=== PATIENT | female | born 1950 | race African-American/Black ===

== ENCOUNTER 2018-12-21 16:10 | Emergency (ER) | payer MEDICARE, OTHER ==
--- NOTE | 2018-12-21 16:20 | Event Note ---
ED Screening Note ED Screening Note: TO ER FROM SHE HAS NUMEROUS ABSCESS OF LEFT SIDE ANTERIOR ABD, BUTTOCK, LLE CHILLS/FEVER RX BP OSTEOPOROSIS This initial assessment/diagnostic orders/clinical plan/treatment(s) is/are subject to change based on patients health status, clinical progression and re- assessment by fellow clinical providers in the ED. Further treatment and workup at subsequent clinical providers discretion. Patient/guardian urged not to elope from the ED as their condition may be serious if not clinically assessed and managed. Initial orders include:
[2018-12-21] MEDS ORDERED: NACL 0.9% 1000 ML IV ONE (16:27)
[2018-12-21 16:53] LABS: Hematocrit 35.4 % (30.3-42.9); Mean Corpuscular HGB Conc 34 % (30-34); Mean Corpuscular Volume 95 fl (79-97); Platelet Count 329 K/mm3 (140-440); Red Blood Count 3.72 M/mm3 (3.65-5.03); Red Cell Distribution Width 13.7 % (13.2-15.2)
[2018-12-21] MEDS ORDERED: ceFAZolin 2 GM in NACL 0.9% 100 ML IV SCH (17:00)
[2018-12-21] MEDS ORDERED: NORCO 5/325 PO ONE (17:06)
--- NOTE | 2018-12-21 17:12 | Emergency Department Report ---
HPI - General Chief Complaint: Skin/Abscess/Foreign Body Time Seen by Provider: 12/21/18 16:50 - HPI HPI: Room 26 The patient is a 68-year-old female presenting with a chief complaint of multiple abscesses. The patient states 5 days ago she noticed masses on her belly legs and buttocks that were "hot" and draining "pus." Patient is a subjective fever. The patient with her primary physician's office today and in turn was sent to the ED for further management. Patient states the abscesses hurt worse when they're touched her pain ranges from 6-8/10. Patient denies any previous episodes of same. History obtained using language line Location: [See above] Duration: [See above] Quality: [See above] Severity: [See above] Modifying factors: [see above] Context: [see above] Mode of transportation: [not driving] ED Past Medical Hx - Past Medical History Hx Hypertension: Yes Additional medical history: OSTESO POROSIS - Surgical History Past Surgical History?: No - Family History Family history: no significant - Social History Smoking Status: Never Smoker Substance Use Type: None - Medications Home Medications: Home Medications Medication Instructions Recorded Confirmed Last Taken Type HYDROcodone/APAP 5-325 [[place] 1 each PO Q6HR PRN #14 tablet 12/21/18 Unknown Rx 5/325] Ibuprofen [Motrin 800 MG tab] 800 mg PO Q8HR PRN #20 tablet 12/21/18 Unknown Rx levoFLOXacin [Levaquin] 750 mg PO QDAY #10 tablet 12/21/18 Unknown Rx ED Review of Systems ROS: Stated complaint: CYST Other details as noted in HPI Constitutional: fever (subjective) Eyes: denies: eye pain ENT: denies: throat pain Respiratory: no symptoms reported Cardiovascular: denies: chest pain Endocrine: no symptoms reported Gastrointestinal: denies: abdominal pain Genitourinary: denies: dysuria Musculoskeletal: denies: back pain Skin: lesions Neurological: denies: headache Physical Exam - Physical Exam Vital Signs: Vital Signs 12/21/18 16:19 Temperature 98.8 F Pulse Rate 82 Respiratory 16 Rate Blood Pressure 127/68 O2 Sat by Pulse 98 Oximetry Physical Exam: GENERAL: The patient is well-developed well-nourished female lying on stretcher not appearing to be in acute distress. [] HEENT: Normocephalic. Atraumatic. Extraocular motions are intact. Patient has moist mucous membranes. NECK: Supple. Trachea midline CHEST/LUNGS: Clear to auscultation. There is no respiratory distress noted. HEART/CARDIOVASCULAR: Regular. There is no tachycardia. There is no gallop rub or murmur. ABDOMEN: Abdomen is soft, nontender. Patient has normal bowel sounds. There is no abdominal distention. SKIN: There is an ovoid abscess that is tender fluctuant to the left lower abdomen it measures approximately 2.5 cm in length and 1 cm in diameter. There is a large cellulitic region to the left buttocks draining purulent discharge. The region of erythema has approximately 10 cm diameter. There is a quarter- sized region of erythema with induration the back of the left thigh There is no edema. There is no diaphoresis. NEURO: The patient is awake, alert, and oriented. The patient is cooperative. The patient has no focal neurologic deficits. The patient has normal speech MUSCULOSKELETAL: There is no evidence of acute injury. ED Course Vital Signs 12/21/18 16:19 Temperature 98.8 F Pulse Rate 82 Respiratory 16 Rate Blood Pressure 127/68 O2 Sat by Pulse 98 Oximetry - I & D Left Buttocks Type of Procedure: Simple Site: left buttocks Blade Size: 11 I & D Procedure: betadine prep, sterile dressing applied, gauze wick placed Progress: Approximately 10 ML's of purulent discharge expressed. Wound packed with one- inch iodoform gauze. Left Lower Abdomen Type of Procedure: Simple Site: left lower abdomen Blade Size: 11 I & D Procedure: betadine prep, sterile dressing applied, gauze wick placed Left Posterior Thigh Type of Procedure: Simple Site: left posterior thigh Blade Size: 11 I & D Procedure: betadine prep, sterile dressing applied, gauze wick placed ED Medical Decision Making - Lab Data Result diagrams: 12/21/18 16:33 12/21/18 16:33 - Differential Diagnosis abscesses Critical care attestation.: If time is entered above; I have spent that time in minutes in the direct care of this critically ill patient, excluding procedure time. ED Disposition Clinical Impression: Abscess of skin of abdomen, Abscess of left buttock, Abscess of left thigh Disposition: DC-01 TO HOME OR SELFCARE Is pt being admited?: No Does the pt Need Aspirin: No Condition: Stable Instructions: Abscess (ED) Additional Instructions: Return to the emergency department in 48 hours to have your abscess packing removed and reevaluated. Return to the emergency department immediately should you develop worsening symptoms, fever, inability to tolerate food or liquid or any other concerns. Prescriptions: levoFLOXacin [Levaquin] 750 mg PO QDAY #10 tablet Ibuprofen [Motrin 800 MG tab] 800 mg PO Q8HR PRN #20 tablet PRN Reason: Pain, Moderate (4-6) HYDROcodone/APAP 5-325 [[place] 5/325] 1 each PO Q6HR PRN #14 tablet PRN Reason: Pain Referrals: SOCRATES LLANOS MD [Primary Care Provider] - 3-5 Days Time of Disposition: 20:44
[2018-12-21 17:21] LABS: Alanine Aminotransferase 27 units/L (7-56); Albumin 3.6 g/dL (3.9-5); BUN/Creatinine Ratio 24; Blood Urea Nitrogen 19 mg/dL (7-17); Hemolysis Index 4
[2018-12-21 17:42] LABS: Bilirubin,Urine NEG (Negative); Blood,Urine SM (Negative); Color,Urine Yellow (Yellow); Mucus,Urine FEW /HPF; Protein,Urine <15 mg/dL mg/dL (Negative); Urobilinogen,Urine < 2.0 mg/dL (<2.0)
[2018-12-21] MEDS ORDERED: XYLOCAINE 1%/ EPI 1:100,000 INFILTRATI ONE (18:16)
[2018-12-21] MEDS ORDERED: NACL 0.9% 500 ML IR ONE (18:20)
[2018-12-21] MEDS ORDERED: NACL 0.9% 1000 ML 1,000 ML ONE (18:39)
[2018-12-21] MEDS ORDERED: SUBLIMAZE IV ONE (21:01)
[2018-12-21] MEDS ORDERED: ZOFRAN IV ONE (21:01)
[2018-12-21 21:13] VITALS: BP 122/81
== END 2018-12-21 21:13 | disposition home or self-care (01) ==
LOC: ED 16:10
DX: L02.31 Cutaneous abscess of buttock (principal); L02.211 Cutaneous abscess of abdominal wall; L02.416 Cutaneous abscess of left lower limb; I10 Essential (primary) hypertension
CPT/HCPCS: 10061; 36415; 80053; 81001; 82140; 85027; 87040; 87086; 87116; 96365; 99283; J7030; 87076; 87186; J0690

== ENCOUNTER 2018-12-23 11:08 | Inpatient (IN) | payer MEDICARE ==
--- NOTE | 2018-12-23 11:20 | Event Note ---
ED Screening Note ED Screening Note: was evaluated in the ED on 12/21/18 for multiple abscesses still having pain still having drainage large area of cellulitis to the buttocks with multiple purulent draining areas on levaquin This initial assessment/diagnostic orders/clinical plan/treatment(s) is/are subject to change based on patients health status, clinical progression and re- assessment by fellow clinical providers in the ED. Further treatment and workup at subsequent clinical providers discretion. Patient/guardian urged not to elope from the ED as their condition may be serious if not clinically assessed and managed. Initial orders include: labs
[2018-12-23] MEDS ORDERED: ceFAZolin 2 GM in NACL 0.9% 100 ML IV SCH (11:44)
[2018-12-23] MEDS ORDERED: NACL 0.9% 1000 ML IV ONE ×2 (11:44→14:00)
[2018-12-23] MEDS ORDERED: VANCOMYCIN 2,000 MG in NACL 0.9% 500 ML 500 ML IV ONE (11:44)
[2018-12-23] MEDS ORDERED: TORADOL IV ONE (11:47)
[2018-12-23] MEDS ORDERED: VANCOMYCIN PHARMACY TO DOSE IV SCH ×2 (12:00→20:00)
[2018-12-23 12:30] LABS: Basophils % (Auto) 0.4 % (0.0-1.8); Eosinophils # (Auto) 0.1 K/mm3 (0.0-0.4); Eosinophils % (Auto) 1.2 % (0.0-4.3); Hematocrit 33.4 % (30.3-42.9); Hemoglobin 11.3 gm/dl (10.1-14.3); Lymphocytes # (Auto) 1.4 K/mm3 (1.2-5.4); Lymphocytes % (Auto) 24.2 % (13.4-35.0); Mean Corpuscular HGB Conc 34 % (30-34); Mean Corpuscular Volume 95 fl (79-97); Monocytes # (Auto) 0.6 K/mm3 (0.0-0.8); Monocytes % (Auto) 10.9 % (0.0-7.3); Platelet Count 328 K/mm3 (140-440); Red Blood Count 3.52 M/mm3 (3.65-5.03)
[2018-12-23 12:53] LABS: Calcium 8.1 mg/dL (8.4-10.2)
[2018-12-23] MEDS ORDERED: ANCEF/STERILE WATER 2 GM/20 ML 2 GM/20 ML SYRINGE IV ONE (13:00)
--- NOTE | 2018-12-23 13:56 | Emergency Department Report ---
ED General Adult HPI - General Chief complaint: Skin/Abscess/Foreign Body Stated complaint: FOLLOW UP Time Seen by Provider: 12/23/18 11:37 Source: patient Mode of arrival: Ambulatory Limitations: No Limitations - History of Present Illness Initial comments: Patient is a 68-year-old [place] female who is presenting with a recheck of abscess that was I&D on her left hip and thigh 2 days ago. Patient's daughter states that she feels so she's getting worse. Patient has had fever and diaphoresis chills. She has had some increased weakness as well and her pain is not controlled. Patient had an abscess drained 2 days ago. She denies any nausea vomiting diarrhea at this time. Severity scale (0 -10): 8 Quality: aching Consistency: constant - Related Data Home Medications Medication Instructions Recorded Confirmed Last Taken Alendronate Sodium [Fosamax] 70 mg PO QWEEK 12/23/18 12/23/18 Unknown Lisinopril/Hydrochlorothiazide 1 each PO DAILY 12/23/18 12/23/18 Unknown [Zestoretic 10-12.5 mg Tablet] Simvastatin 20 mg PO QHS 12/23/18 12/23/18 Unknown Previous Rx's Medication Instructions Recorded Last Taken Type Calcium Carb/Vit D3/Minerals 1 each PO BID #60 tablet 12/27/18 Unknown Rx [Caltrate Plus] HYDROcodone/APAP 5-325 [[place] 1 each PO Q6H PRN #14 tablet 12/27/18 Unknown Rx 5-325 mg TAB] Sulfamethoxazole/Trimethoprim 1 each PO BID 14 Days tablet 12/27/18 Unknown Rx [Bactrim DS TAB] metFORMIN [Glucophage] 500 mg PO BIDDIAB #30 tablet 12/27/18 Unknown Rx Allergies Allergy/AdvReac Type Severity Reaction Status Date / Time No Known Allergies Allergy Unverified 12/21/18 16:25 ED Review of Systems ROS: Stated complaint: FOLLOW UP Other details as noted in HPI ED Past Medical Hx - Past Medical History Hx Hypertension: Yes Additional medical history: OSTESO POROSIS, high cholesterol - Surgical History Past Surgical History?: No - Social History Smoking Status: Never Smoker Substance Use Type: Prescribed - Medications Home Medications: Home Medications Medication Instructions Recorded Confirmed Last Taken Type Alendronate Sodium [Fosamax] 70 mg PO QWEEK 12/23/18 12/23/18 Unknown History Lisinopril/Hydrochlorothiazide 1 each PO DAILY 12/23/18 12/23/18 Unknown History [Zestoretic 10-12.5 mg Tablet] Simvastatin 20 mg PO QHS 12/23/18 12/23/18 Unknown History Calcium Carb/Vit D3/Minerals 1 each PO BID #60 tablet 12/27/18 Unknown Rx [Caltrate Plus] HYDROcodone/APAP 5-325 [[place] 1 each PO Q6H PRN #14 tablet 12/27/18 Unknown Rx 5-325 mg TAB] Sulfamethoxazole/Trimethoprim 1 each PO BID 14 Days tablet 12/27/18 Unknown Rx [Bactrim DS TAB] metFORMIN [Glucophage] 500 mg PO BIDDIAB #30 tablet 12/27/18 Unknown Rx ED Physical Exam - General Limitations: No Limitations ED Course Vital Signs 12/23/18 12/23/18 12/23/18 11:10 13:50 17:42 Temperature 97.9 F 97.9 F 98.3 F Pulse Rate 95 H 77 72 Respiratory 18 18 18 Rate Blood Pressure 86/47 Blood Pressure 116/75 103/48 [Right] O2 Sat by Pulse 99 99 98 Oximetry 12/23/18 12/23/18 17:59 19:39 Temperature 98.3 F Pulse Rate 80 Respiratory 18 20 Rate Blood Pressure Blood Pressure 99/57 [Right] O2 Sat by Pulse 100 100 Oximetry ED Medical Decision Making - Lab Data Result diagrams: 12/24/18 04:09 12/24/18 04:09 Lab Results 12/23/18 12/23/18 12/23/18 Range/Units 12:04 12:04 12:04 WBC 5.6 (4.5-11.0) K/mm3 RBC 3.52 L (3.65-5.03) M/mm3 Hgb 11.3 (10.1-14.3) gm/dl Hct 33.4 (30.3-42.9) % MCV 95 (79-97) fl MCH 32 (28-32) pg MCHC 34 (30-34) % RDW 14.0 (13.2-15.2) % Plt Count 328 (140-440) K/mm3 Lymph % (Auto) 24.2 (13.4-35.0) % [place] % (Auto) 10.9 H (0.0-7.3) % Eos % (Auto) 1.2 (0.0-4.3) % Baso % (Auto) 0.4 (0.0-1.8) % Lymph # 1.4 (1.2-5.4) K/mm3 [place] # 0.6 (0.0-0.8) K/mm3 Eos # 0.1 (0.0-0.4) K/mm3 Baso # 0.0 (0.0-0.1) K/mm3 Seg Neutrophils % 63.3 (40.0-70.0) % Seg Neutrophils # 3.6 (1.8-7.7) K/mm3 Sodium 136 L (137-145) mmol/L Potassium 4.2 (3.6-5.0) mmol/L Chloride 100.8 (98-107) mmol/L Carbon Dioxide 23 (22-30) mmol/L Anion Gap 16 mmol/L BUN 16 (7-17) mg/dL Creatinine 1.0 (0.7-1.2) mg/dL Estimated GFR 55 ml/min BUN/Creatinine Ratio 16 % Glucose 111 H (65-100) mg/dL Hemoglobin A1c 6.6 H (4-6) % Lactic Acid (0.7-2.0) mmol/L Calcium 8.1 L (8.4-10.2) mg/dL 12/23/18 Range/Units 12:38 WBC (4.5-11.0) K/mm3 RBC (3.65-5.03) M/mm3 Hgb (10.1-14.3) gm/dl Hct (30.3-42.9) % MCV (79-97) fl MCH (28-32) pg MCHC (30-34) % RDW (13.2-15.2) % Plt Count (140-440) K/mm3 Lymph % (Auto) (13.4-35.0) % [place] % (Auto) (0.0-7.3) % Eos % (Auto) (0.0-4.3) % Baso % (Auto) (0.0-1.8) % Lymph # (1.2-5.4) K/mm3 [place] # (0.0-0.8) K/mm3 Eos # (0.0-0.4) K/mm3 Baso # (0.0-0.1) K/mm3 Seg Neutrophils % (40.0-70.0) % Seg Neutrophils # (1.8-7.7) K/mm3 Sodium (137-145) mmol/L Potassium (3.6-5.0) mmol/L Chloride (98-107) mmol/L Carbon Dioxide (22-30) mmol/L Anion Gap mmol/L BUN (7-17) mg/dL Creatinine (0.7-1.2) mg/dL Estimated GFR ml/min BUN/Creatinine Ratio % Glucose (65-100) mg/dL Hemoglobin A1c (4-6) % Lactic Acid 1.30 (0.7-2.0) mmol/L Calcium (8.4-10.2) mg/dL - Medical Decision Making Patient's cellulitis has worsened despite outpatient therapy. Area of concern on the left hip approximate size of a grapefruit. There is fluctuant. Patient likely will need surgical debridement or at least surgical consult. Patient to be admitted to the hospital service Critical care attestation.: If time is entered above; I have spent that time in minutes in the direct care of this critically ill patient, excluding procedure time. ED Disposition Clinical Impression: Abscess of left thigh, Abscess of left buttock Sepsis Qualifiers: Sepsis type: sepsis due to unspecified organism Qualified Code(s): A41.9 - Sepsis, unspecified organism Disposition: OP ADMIT IP TO THIS HOSP Is pt being admited?: Yes Condition: Stable
[2018-12-23] MEDS ORDERED: VANCOMYCIN/NS 1 GM/250 ML 1 GM/250 ML BAG IV ONE (14:00)
[2018-12-23 16:27] LABS: Bilirubin,Urine NEG (Negative); Blood,Urine NEG (Negative); Color,Urine Colorless (Yellow); Protein,Urine <15 mg/dL mg/dL (Negative); Urobilinogen,Urine < 2.0 mg/dL (<2.0)
[2018-12-23] MEDS ORDERED: IBUPROFEN PO PRN (19:38)
[2018-12-23] MEDS ORDERED: SODIUM CHLORIDE FLUSH SYRINGE 10 ML IV PRN (19:38)
[2018-12-23] MEDS ORDERED: TYLENOL PO PRN (19:38)
[2018-12-23] MEDS ORDERED: ZOFRAN IV PRN (19:38)
--- NOTE | 2018-12-23 19:38 | History and Physical Report ---
History of Present Illness Date of examination: 12/23/18 Date of admission: 12/23/18 14:04 Chief complaint: Abscesses on L thigh and Hip 1 week History of present illness: 68-year-old [place] female who is presenting with a recheck of abscess that was I&D on her left hip and thigh 2 days ago. Patient's daughter states that she feels she's getting worse. Patient has had fever and diaphoresis chills. She has had some increased weakness as well and her pain is not controlled. Patient had an abscess drained 2 days ago. She denies any nausea vomiting diarr hea at this time. Patient has 3 abscesses on L posterior Thigh and L Hip .@ abscesses with drains .Erythema surrounding the drains present. Past Medical History Hypertension OSTESO POROSIS, HLD Surgical History Past Surgical History?: No Social History Smoking Status: Never Smoker Substance Use Type: Prescribed Family History Htn Medications Home Medications: Home Medications Medication Instructions Recorded Confirmed Last Taken Type HYDROcodone/APAP 5-325 [[place] 1 each PO Q6HR PRN #14 tablet 12/21/18 Unknown Rx 5/325] Ibuprofen [Motrin 800 MG tab] 800 mg PO Q8HR PRN #20 tablet 12/21/18 Unknown Rx levoFLOXacin [Levaquin] 750 mg PO QDAY #10 tablet 12/21/18 Unknown Rx Review of Systems ROS: Stated complaint: FOLLOW UP Other details as noted in HPI Medications and Allergies Allergies Allergy/AdvReac Type Severity Reaction Status Date / Time No Known Allergies Allergy Unverified 12/21/18 16:25 Home Medications Medication Instructions Recorded Confirmed Last Taken Type Alendronate Sodium [Fosamax] 70 mg PO QWEEK 12/23/18 12/23/18 Unknown History Lisinopril/Hydrochlorothiazide 1 each PO DAILY 12/23/18 12/23/18 Unknown History [Zestoretic 10-12.5 mg Tablet] Simvastatin 20 mg PO QHS 12/23/18 12/23/18 Unknown History Active Meds: Active Medications Cefazolin Sodium 2 gm/ Sodium (Chloride) 100 mls @ 200 mls/hr IV Q12H RAY Vancomycin HCl 750 mg/ Sodium (Chloride) 265 mls @ 166.667 mls/hr IV Q24H RAY Exam - Constitutional Vitals: Temp Pulse Resp BP Pulse Ox 98.3 F 80 18 99/57 100 12/23/18 17:59 12/23/18 17:59 12/23/18 17:59 12/23/18 17:59 12/23/18 17:59 General appearance: Present: no acute distress, well-nourished - EENT Eyes: Present: PERRL ENT: hearing intact, clear oral mucosa - Neck Neck: Present: supple, normal ROM - Respiratory Respiratory effort: normal Respiratory: bilateral: CTA - Cardiovascular Heart rate: 88 Rhythm: regular Heart Sounds: Present: S1 & S2. Absent: rub, click - Extremities Extremities: no ischemia, pulses intact, pulses symmetrical, No edema, abnormal (3 abscesses 5cmx 5cm on Lposterior thighx2 and L Hip ) Peripheral Pulses: within normal limits - Abdominal General gastrointestinal: Present: soft, non-tender, non-distended, normal bowel sounds Female genitourinary: Present: normal - Integumentary Integumentary: Present: clear, warm, dry - Musculoskeletal Musculoskeletal: gait normal, strength equal bilaterally - Psychiatric Psychiatric: appropriate mood/affect, intact judgment & insight - Neurologic Neurologic: CNII-XII intact, moves all extremities Results - Labs CBC & Chem 7: 12/24/18 04:09 12/24/18 04:09 Labs: Laboratory Last Values WBC 5.6 K/mm3 (4.5-11.0) 12/23/18 12:04 RBC 3.52 M/mm3 (3.65-5.03) L 12/23/18 12:04 Hgb 11.3 gm/dl (10.1-14.3) 12/23/18 12:04 Hct 33.4 % (30.3-42.9) 12/23/18 12:04 MCV 95 fl (79-97) 12/23/18 12:04 MCH 32 pg (28-32) 12/23/18 12:04 MCHC 34 % (30-34) 12/23/18 12:04 RDW 14.0 % (13.2-15.2) 12/23/18 12:04 Plt Count 328 K/mm3 (140-440) 12/23/18 12:04 Lymph % (Auto) 24.2 % (13.4-35.0) 12/23/18 12:04 [place] % (Auto) 10.9 % (0.0-7.3) H 12/23/18 12:04 Eos % (Auto) 1.2 % (0.0-4.3) 12/23/18 12:04 Baso % (Auto) 0.4 % (0.0-1.8) 12/23/18 12:04 Lymph # 1.4 K/mm3 (1.2-5.4) 12/23/18 12:04 [place] # 0.6 K/mm3 (0.0-0.8) 12/23/18 12:04 Eos # 0.1 K/mm3 (0.0-0.4) 12/23/18 12:04 Baso # 0.0 K/mm3 (0.0-0.1) 12/23/18 12:04 Seg Neutrophils % 63.3 % (40.0-70.0) 12/23/18 12:04 Seg Neutrophils # 3.6 K/mm3 (1.8-7.7) 12/23/18 12:04 Sodium 136 mmol/L (137-145) L 12/23/18 12:04 Potassium 4.2 mmol/L (3.6-5.0) 12/23/18 12:04 Chloride 100.8 mmol/L (98-107) 12/23/18 12:04 Carbon Dioxide 23 mmol/L (22-30) 12/23/18 12:04 16 mmol/L 12/23/18 12:04 BUN 16 mg/dL (7-17) 12/23/18 12:04 1.0 mg/dL (0.7-1.2) 12/23/18 12:04 Estimated GFR 55 ml/min 12/23/18 12:04 16 % 12/23/18 12:04 Glucose 111 mg/dL (65-100) H 12/23/18 12:04 Lactic Acid 1.20 mmol/L (0.7-2.0) 12/23/18 15:16 Calcium 8.1 mg/dL (8.4-10.2) L 12/23/18 12:04 Colorless (Yellow) 12/23/18 15:02 Clear (Clear) 12/23/18 15:02 6.0 (5.0-7.0) 12/23/18 15:02 Ur Specific [place] 1.004 (1.003-1.030) 12/23/18 15:02 <15 mg/dl mg/dL (Negative) 12/23/18 15:02 Neg mg/dL (Negative) 12/23/18 15:02 Neg mg/dL (Negative) 12/23/18 15:02 Neg (Negative) 12/23/18 15:02 Neg (Negative) 12/23/18 15:02 Neg (Negative) 12/23/18 15:02 < 2.0 mg/dL (<2.0) 12/23/18 15:02 Ur Leukocyte Esterase Neg (Negative) 12/23/18 15:02 0.0 /HPF (0.0-6.0) 12/23/18 15:02 1.0 /HPF (0.0-6.0) 12/23/18 15:02 U Epithel Cells (Auto) < 1.0 /HPF (0-13.0) 12/23/18 15:02 Short CBC 12/23/18 12/24/18 Range/Units 12:04 04:09 WBC 5.6 5.1 (4.5-11.0) K/mm3 Hgb 11.3 11.1 (10.1-14.3) gm/dl Hct 33.4 32.9 (30.3-42.9) % Plt Count 328 362 (140-440) K/mm3 BMP 12/23/18 12/24/18 12:04 04:09 Sodium 136 L 141 Potassium 4.2 3.9 Chloride 100.8 110.2 H Carbon Dioxide 23 22 BUN 16 7 Creatinine 1.0 0.7 Glucose 111 H 108 H Calcium 8.1 L 7.8 L Liver Function 12/24/18 Range/Units 04:09 Total Bilirubin 0.20 (0.1-1.2) mg/dL AST 12 (5-40) units/L ALT 13 (7-56) units/L Alkaline Phosphatase 42 (35-129) units/L Albumin 2.7 L (3.9-5) g/dL Urine 12/23/18 Range/Units 15:02 Urine Color Colorless (Yellow) Urine pH 6.0 (5.0-7.0) Ur Specific [place] 1.004 (1.003-1.030) Urine Protein <15 mg/dl (Negative) mg/dL Urine Glucose (UA) Neg (Negative) mg/dL Assessment and Plan Advance Directives: Yes (Full code) VTE prophylaxis?: Chemical Plan of care discussed with patient/family: Yes - Patient Problems (1) SIRS (systemic inflammatory response syndrome) Current Visit: Yes Status: Acute Plan to address problem: Sec to abscess Slightly altered sensorium (2) Abscess of left buttock Current Visit: Yes Status: Acute Plan to address problem: IV Unasyn and IV Vancomycin Surgery consult for possible I and D (3) Abscess of left thigh Current Visit: Yes Status: Acute Plan to address problem: IV abx and Surgery consult (4) HTN (hypertension) Current Visit: Yes Status: Chronic Qualifiers: Hypertension type: essential hypertension Qualified Code(s): I10 - Essential (primary) hypertension Plan to address problem: Cont antihpertensives (5) HLD (hyperlipidemia) Current Visit: Yes Status: Chronic Qualifiers: Hyperlipidemia type: mixed hyperlipidemia Qualified Code(s): E78.2 - Mixed hyperlipidemia Plan to address problem: COnt statins (6) Osteoporosis Current Visit: Yes Status: Chronic Qualifiers: Osteoporosis type: unspecified Plan to address problem: Cont Alendronate as per schedule (7) Hyponatremia Current Visit: Yes Status: Acute Plan to address problem: Mild Should correct with IV NS (8) Hypocalcemia Current Visit: Yes Status: Chronic Plan to address problem: Caltrate bid initiated (9) T2DM (type 2 diabetes mellitus) Current Visit: Yes Status: Acute Qualifiers: 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
[2018-12-23] MEDS: NACL 0.9% 1000 ML 1,000 ML IV SCH (21:20)
[2018-12-23] MEDS: UNASYN/NS 3 GM/100 ML 3 GM/100 ML BAG IV SCH (21:20)
[2018-12-23] MEDS: PEPCID PO SCH (21:21)
[2018-12-24] MEDS: SODIUM CHLORIDE FLUSH SYRINGE 10 ML IV SCH ×3 (01:52→21:55)
[2018-12-24] MEDS: UNASYN/NS 3 GM/100 ML 3 GM/100 ML BAG IV SCH ×4 (01:56→21:48)
[2018-12-24 04:51] LABS: Basophils % (Auto) 0.6 % (0.0-1.8); Eosinophils # (Auto) 0.1 K/mm3 (0.0-0.4); Eosinophils % (Auto) 2.9 % (0.0-4.3); Hematocrit 32.9 % (30.3-42.9); Hemoglobin 11.1 gm/dl (10.1-14.3); Lymphocytes # (Auto) 1.6 K/mm3 (1.2-5.4); Lymphocytes % (Auto) 30.9 % (13.4-35.0); Mean Corpuscular HGB Conc 34 % (30-34); Mean Corpuscular Volume 95 fl (79-97); Monocytes # (Auto) 0.5 K/mm3 (0.0-0.8); Platelet Count 362 K/mm3 (140-440); Red Blood Count 3.45 M/mm3 (3.65-5.03); Red Cell Distribution Width 13.7 % (13.2-15.2)
[2018-12-24 05:05] LABS: Alanine Aminotransferase 13 units/L (7-56); Albumin 2.7 g/dL (3.9-5); BUN/Creatinine Ratio 10; Blood Urea Nitrogen 7 mg/dL (7-17); Calcium 7.8 mg/dL (8.4-10.2); Hemolysis Index 1
[2018-12-24] MEDS: MORPHINE IV PRN ×3 (05:26→18:36)
[2018-12-24] MEDS: HumaLOG SUB-Q SCH ×4 (08:41→22:45)
[2018-12-24] MEDS: CALTRATE PLUS PO SCH ×2 (10:34→21:54)
[2018-12-24] MEDS: PEPCID PO SCH ×2 (11:09→21:54)
[2018-12-24] MEDS: GLUCOPHAGE PO SCH ×2 (11:26→22:53)
[2018-12-24] MEDS: NACL 0.9% 1000 ML 1,000 ML IV SCH (12:20)
[2018-12-24] MEDS ORDERED: VANCOMYCIN PHARMACY TO DOSE IV SCH (13:00)
[2018-12-24] MEDS ORDERED: VANCOMYCIN 750 MG in NACL 0.9% 250ML 250 ML IV SCH (13:30)
--- NOTE | 2018-12-24 13:31 | Progress Note ---
Assessment and Plan Advance Directives: Yes (Full code) VTE prophylaxis?: Chemical Plan of care discussed with patient/family: Yes - Patient Problems (1) SIRS (systemic inflammatory response syndrome) Current Visit: Yes Status: Acute Plan to address problem: Sec to abscess Blood culture and wound culture obtained. IV antibiotics (2) Abscess of left buttock Current Visit: Yes Status: Acute Plan to address problem: IV Unasyn and IV Vancomycin Surgery consult for possible I and D (3) Abscess of left thigh Current Visit: Yes Status: Acute Plan to address problem: IV abx and Surgery consult (4) HTN (hypertension) Current Visit: Yes Status: Chronic Qualifiers: Hypertension type: essential hypertension Qualified Code(s): I10 - Essential (primary) hypertension Plan to address problem: Cont antihpertensives (5) HLD (hyperlipidemia) Current Visit: Yes Status: Chronic Qualifiers: Hyperlipidemia type: mixed hyperlipidemia Qualified Code(s): E78.2 - Mixed hyperlipidemia Plan to address problem: COnt statins (6) Osteoporosis Current Visit: Yes Status: Chronic Qualifiers: Osteoporosis type: unspecified Plan to address problem: Cont Alendronate as per schedule (7) Hyponatremia Current Visit: Yes Status: Acute Plan to address problem: Mild Should correct with IV NS (8) Hypocalcemia Current Visit: Yes Status: Chronic Plan to address problem: Caltrate bid initiated (9) T2DM (type 2 diabetes mellitus) Current Visit: Yes Status: Acute Qualifiers: 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 Denies any fever. No nausea no vomiting. Objective - Exam Narrative Exam: Constitutional: Well-nourished well-developed. In no distress Head: Normocephalic atraumatic Eyes: Pupils are equal round and reactive to light Nose: No enlarged turbinates, no septal deviation. Mouth: Moist mucous membranes. Neck: Supple no thyromegaly. No bruit. No JVD Heart: Regular rate and rhythm, S1-S2 normal. No rubs murmurs or gallop Lungs: Clear to auscultation bilaterally. no rales or rhonchi Abdomen: Soft, nontender. Bowel sound are present. Extremities: No edema, no cyanosis, no clubbing. Neuro: Alert oriented Oriented x3. No focal sensory or motor deficit. Skin: Left thigh and hip with dry wound dressing Musculoskeletal system: No joint pain or swelling Hematological: No petechia or subcutanous hemorrhages. Immunological: No multiple septic spots on the skin Lymphatic: No generalized lymphadenopathy Psychiatry: Euthymic. Calm. - Constitutional Vitals: Vital Signs - 12hr 12/24/18 04:25 Temperature 97.8 F Pulse Rate 59 L Respiratory 17 Rate Blood Pressure 113/48 O2 Sat by Pulse 96 Oximetry - Labs CBC & Chem 7: 12/24/18 04:09 12/24/18 04:09 Labs: Abnormal lab results 12/23/18 12/24/18 12/24/18 Range/Units 12:04 04:09 04:09 RBC 3.45 L (3.65-5.03) M/mm3 [place] % (Auto) 10.0 H (0.0-7.3) % Chloride 110.2 H (98-107) mmol/L Glucose 108 H (65-100) mg/dL POC Glucose (70-105) Hemoglobin A1c 6.6 H (4-6) % Calcium 7.8 L (8.4-10.2) mg/dL Total Protein 6.1 L D (6.3-8.2) g/dL Albumin 2.7 L (3.9-5) g/dL 12/24/18 Range/Units 06:18 RBC (3.65-5.03) M/mm3 [place] % (Auto) (0.0-7.3) % Chloride (98-107) mmol/L Glucose (65-100) mg/dL POC Glucose 108 H (70-105) Hemoglobin A1c (4-6) % Calcium (8.4-10.2) mg/dL Total Protein (6.3-8.2) g/dL Albumin (3.9-5) g/dL
--- NOTE | 2018-12-24 14:37 | Consultation ---
History of Present Illness Consult date: 12/24/18 Chief complaint: wounds - History of present illness History of present illness: 68 yo F who presented to ER on 12/21 with c/o boils on her lower left abdomen, left thigh, and left buttock. She underwent incision and drainage of these areas and was sent home with instructions to follow up in 48 hrs for packing removal. She presented back to ER with complaints of increased pain, drainage, and concern that the areas were getting worse. She was admitted to the hospital for further care. Wound cultures are growing staph aureus. Patient does not speak much somali and all history obtained from chart. No f/c Past History Past Surgical History: Other (incision and drainage of skin abscesses) Social history: no significant social history Family history: no significant family history Medications and Allergies Allergies Allergy/AdvReac Type Severity Reaction Status Date / Time No Known Allergies Allergy Unverified 12/21/18 16:25 Home Medications Medication Instructions Recorded Confirmed Last Taken Type Alendronate Sodium [Fosamax] 70 mg PO QWEEK 12/23/18 12/23/18 Unknown History Lisinopril/Hydrochlorothiazide 1 each PO DAILY 12/23/18 12/23/18 Unknown History [Zestoretic 10-12.5 mg Tablet] Simvastatin 20 mg PO QHS 12/23/18 12/23/18 Unknown History Active Meds: Active Medications Acetaminophen (Tylenol) 650 mg PO Q4H PRN PRN Reason: Pain MILD(1-3)/Fever >100.5/NEAL Famotidine (Pepcid) 20 mg PO BID [facility] Last Admin: 12/24/18 11:09 Dose: 20 mg Documented by: Sodium Chloride (Nacl 0.9% 1000 Ml) 1,000 mls @ 75 mls/hr IV DIRECT RAY Last Admin: 12/23/18 21:20 Dose: 75 mls/hr Documented by: Ampicillin Sodium/Sulbactam Sodium (Unasyn/Ns 3 Gm/100 Ml) 3 gm in 100 mls @ 100 mls/hr IV Q6H [facility]; Protocol Last Admin: 12/24/18 09:09 Dose: 100 mls/hr Documented by: Vancomycin HCl 750 mg/ Sodium (Chloride) 265 mls @ 166.667 mls/hr IV Q24HR@1400 RAY Ibuprofen (Ibuprofen) 600 mg PO Q6H PRN PRN Reason: Pain, Mild (1-3) Insulin Human Lispro (Humalog) 0 unit SUB-Q ACHS [facility]; Protocol Last Admin: 12/24/18 08:41 Dose: Not Given Documented by: Metformin HCl (Glucophage) 500 mg PO BIDDIAB [facility] Last Admin: 12/24/18 11:26 Dose: 500 mg Documented by: Morphine Sulfate (Morphine) 2 mg IV Q4H PRN PRN Reason: Pain, Moderate (4-6) Last Admin: 12/24/18 11:08 Dose: 2 mg Documented by: Multivitamins/Minerals (Caltrate Plus) 1 each PO BID [facility] Ondansetron HCl (Zofran) 4 mg IV Q8H PRN PRN Reason: Nausea And Vomiting Sodium Chloride (Sodium Chloride Flush Syringe 10 Ml) 10 ml IV BID [facility] Last Admin: 12/24/18 11:32 Dose: 10 ml Documented by: Sodium Chloride (Sodium Chloride Flush Syringe 10 Ml) 10 ml IV PRN PRN PRN Reason: LINE FLUSH Review of Systems All systems: negative (10 pt ROS performed and negative except for that listed in HPI) Exam Vital Signs Temp Pulse Resp BP Pulse Ox 97.9 F 95 H 18 86/47 99 12/23/18 11:10 12/23/18 11:10 12/23/18 11:10 12/23/18 11:10 12/23/18 11:10 Narrative exam: Gen: Awake and alert. NAD CV: s1, S2+ resp; even and unlabored Abd: soft, ND, Left lower abdominal wound with packing in place. One piece of io doform packing removed. Necrotic skin present. + Induration. No drainage Ext: posterior left gluteal wound with packing in place. Multiple openings over this area. One long piece of packing removed. Necrotic skin present with purulent drainage. + induration and fluctuance. Left posterior thigh wound with packing in place. One piece of packing removed. Necrotic skin present. + Induration. No drainage Results - Labs 12/24/18 04:09 12/24/18 04:09 Abnormal lab results 12/23/18 12/24/18 12/24/18 Range/Units 12:04 04:09 04:09 RBC 3.45 L (3.65-5.03) M/mm3 [place] % (Auto) 10.0 H (0.0-7.3) % Chloride 110.2 H (98-107) mmol/L Glucose 108 H (65-100) mg/dL POC Glucose (70-105) Hemoglobin A1c 6.6 H (4-6) % Calcium 7.8 L (8.4-10.2) mg/dL Total Protein 6.1 L D (6.3-8.2) g/dL Albumin 2.7 L (3.9-5) g/dL 12/24/18 12/24/18 Range/Units :18 13:32 RBC (3.65-5.03) M/mm3 [place] % (Auto) (0.0-7.3) % Chloride (98-107) mmol/L Glucose (65-100) mg/dL POC Glucose 108 H 216 H (70-105) Hemoglobin A1c (4-6) % Calcium (8.4-10.2) mg/dL Total Protein (6.3-8.2) g/dL Albumin (3.9-5) g/dL Diabetes panel 12/23/18 12/24/18 Range/Units 12:04 04:09 Sodium 141 (137-145) mmol/L Potassium 3.9 (3.6-5.0) mmol/L Chloride 110.2 H (98-107) mmol/L Carbon Dioxide 22 (22-30) mmol/L BUN 7 (7-17) mg/dL Creatinine 0.7 (0.7-1.2) mg/dL Glucose 108 H (65-100) mg/dL Hemoglobin A1c 6.6 H (4-6) % Calcium 7.8 L (8.4-10.2) mg/dL AST 12 (5-40) units/L ALT 13 (7-56) units/L Alkaline Phosphatase 42 (35-129) units/L Total Protein 6.1 L D (6.3-8.2) g/dL Albumin 2.7 L (3.9-5) g/dL Calcium panel 12/24/18 Range/Units 04:09 Calcium 7.8 L (8.4-10.2) mg/dL Albumin 2.7 L (3.9-5) g/dL Pituitary panel 12/24/18 Range/Units 04:09 Sodium 141 (137-145) mmol/L Potassium 3.9 (3.6-5.0) mmol/L Chloride 110.2 H (98-107) mmol/L Carbon Dioxide 22 (22-30) mmol/L BUN 7 (7-17) mg/dL Creatinine 0.7 (0.7-1.2) mg/dL Glucose 108 H (65-100) mg/dL Calcium 7.8 L (8.4-10.2) mg/dL Adrenal panel 12/24/18 Range/Units 04:09 Sodium 141 (137-145) mmol/L Potassium 3.9 (3.6-5.0) mmol/L Chloride 110.2 H (98-107) mmol/L Carbon Dioxide 22 (22-30) mmol/L BUN 7 (7-17) mg/dL Creatinine 0.7 (0.7-1.2) mg/dL Glucose 108 H (65-100) mg/dL Calcium 7.8 L (8.4-10.2) mg/dL Total Bilirubin 0.20 (0.1-1.2) mg/dL AST 12 (5-40) units/L ALT 13 (7-56) units/L Alkaline Phosphatase 42 (35-129) units/L Total Protein 6.1 L D (6.3-8.2) g/dL Albumin 2.7 L (3.9-5) g/dL Assessment and Plan 68 yo F with infected, necrotic wounds of left abdomen, left gluteal, and left thigh Plan; 1. follow up wound cultures - prelim is staph aureus 2. contact precautions 2. IV antibiotics per 1' team 3. wound care - wounds examined with senior regulatory affairs specialist 4. needs further debridement of wounds - will plan on performing in OR. Patient with language barrier. I called her daughter at her request and left VM. 5. keep NPO p MN. Will check with OR and possibly add on for tomorrow Thank you, please call with questions.
[2018-12-24] MEDS: VANCOMYCIN 750 MG in NACL 0.9% 250ML 250 ML IV SCH (20:00)
[2018-12-24] MEDS ORDERED: ceFAZolin 2 GM in NACL 0.9% 100 ML IV SCH (22:00)
[2018-12-25] MEDS: UNASYN/NS 3 GM/100 ML 3 GM/100 ML BAG IV SCH ×4 (02:54→21:29)
[2018-12-25] MEDS: HumaLOG SUB-Q SCH ×4 (08:16→22:08)
[2018-12-25] MEDS: GLUCOPHAGE PO SCH ×2 (08:16→17:12)
[2018-12-25] MEDS: PEPCID PO SCH ×2 (12:02→21:30)
[2018-12-25] MEDS: SODIUM CHLORIDE FLUSH SYRINGE 10 ML IV SCH ×2 (12:02→21:30)
[2018-12-25] MEDS: CALTRATE PLUS PO SCH ×2 (12:02→21:30)
[2018-12-25] MEDS ORDERED: XYLOCAINE MPF 2% ONE (13:00)
[2018-12-25] MEDS ORDERED: ZOFRAN ONE (13:00)
[2018-12-25] MEDS ORDERED: ZOFRAN IV PRN (13:33)
[2018-12-25] MEDS ORDERED: SUBLIMAZE IV PRN (13:33)
[2018-12-25] MEDS ORDERED: DIPRIVAN 10 MG/ML IV ONE ×2 (14:49→15:16)
[2018-12-25] MEDS ORDERED: SUBLIMAZE ONE (14:49)
[2018-12-25] MEDS ORDERED: KETALAR ONE (14:51)
[2018-12-25] MEDS ORDERED: VERSED ONE (14:53)
[2018-12-25] MEDS ORDERED: MARCAINE 0.25% INFILTRATI ONE ×2 (15:16→15:24)
[2018-12-25] MEDS ORDERED: XYLOCAINE 1% 20 mL ONE (15:16)
[2018-12-25] MEDS ORDERED: XYLOCAINE 1% 20 mL INFILTRATI ONE (15:24)
[2018-12-25] MEDS ORDERED: NACL 0.9% IR ONE (15:25)
--- NOTE | 2018-12-25 15:48 | Post Operative Note ---
Date of procedure: 12/25/18 Pre-op diagnosis: infected and necrotic wounds of left buttock, lower abd, and post thigh Post-op diagnosis: same Findings: necrotic tissue and purulent fluid L thigh wound - 1 cm x 1.5cm x 2 cm L buttock wound: 7 cm x 6 cm x 4 cm l lower abdominal wound - 3 cm x 1 cm x 1 cm Procedure: excisional debridement of infected wounds of left buttock, left post thigh, and left lower abdominal wall Anesthesia: MAC, local Surgeon: CURT MONTES DE OCA Estimated blood loss: minimal Pathology: list (wound culture left buttock) Specimen disposition: to lab Condition: stable Disposition: PACU
[2018-12-25] MEDS: NACL 0.9% 1000 ML 1,000 ML IV SCH (17:11)
[2018-12-25] MEDS: VANCOMYCIN 750 MG in NACL 0.9% 250ML 250 ML IV SCH (17:11)
--- NOTE | 2018-12-25 17:20 | Post Anesthesia Evaluation ---
- Post Anesthesia Evaluation Patient Participated: Yes Airway Patent: Yes Stable Respiratory Function: Yes Nausea/Vomiting: No Temp > 96.8F: Yes Pain Manageable: Yes Adequeate Hydration: Yes Anesthesia Complications: No Block Receding Appropriately: Not Applicable Patient on Ventilator: No
--- NOTE | 2018-12-25 17:20 | Anesthesia Day of Surgery ---
Anesthesia Day of Surgery - Day of Surgery Patient Examined: Yes Patient H&P Reviewed: Yes Patient is NPO: Yes
--- NOTE | 2018-12-25 17:21 | Anesthesia Consultation ---
Anesthesia Consult and Med Hx Date of service: 12/25/18 - Pre-Operative Health Status ASA Pre-Surgery Classification: ASA2, Emergency Proposed Anesthetic Plan: MAC - Cardiovascular System Hx Hypertension: Yes - Additional Comments Anesthesia Medical History Comments: Recent I&D. MRSA +
--- NOTE | 2018-12-25 17:45 | Progress Note ---
Assessment and Plan Assessment and plan: (1) SIRS (systemic inflammatory response syndrome) Current Visit: Yes Status: Acute Plan to address problem: Sec to abscess Blood culture and wound culture obtained. IV antibiotics (2) Abscess of left buttock Current Visit: Yes Status: Acute Plan to address problem: IV Unasyn and IV Vancomycin Discussed with Surgery, patient is for I and D (3) Abscess of left thigh Current Visit: Yes Status: Acute Plan to address problem: IV abx and Surgery consult (4) HTN (hypertension) Current Visit: Yes Status: Chronic Qualifiers: Hypertension type: essential hypertension Qualified Code(s): I10 - Essential (primary) hypertension Plan to address problem: Cont antihpertensives (5) HLD (hyperlipidemia) Current Visit: Yes Status: Chronic Qualifiers: Hyperlipidemia type: mixed hyperlipidemia Qualified Code(s): E78.2 - Mixed hyperlipidemia Plan to address problem: COnt statins (6) Osteoporosis Current Visit: Yes Status: Chronic Qualifiers: Osteoporosis type: unspecified Plan to address problem: Cont Alendronate as per schedule (7) Hyponatremia Current Visit: Yes Status: Acute Plan to address problem: Mild Should correct with IV NS (8) Hypocalcemia Current Visit: Yes Status: Chronic Plan to address problem: Caltrate bid initiated (9) T2DM (type 2 diabetes mellitus) Current Visit: Yes Status: Acute Qualifiers: Diabetes mellitus terminal worker insulin use: unspecified correction insulin use status Plan to address problem: Borderline Metfotmin initiated Primary team to discuss borderline DM A1c result 6.6 (10) DVT prophylaxis Current Visit: Yes Status: Acute Plan to address problem: On Lovenox and GI prophylaxis History Interval history: Patient seen and examined today, resting comfortabl, no new complaints. Hospitalist Physical - Physical exam Narrative exam: Constitutional: Well-nourished well-developed. In no distress Head: Normocephalic atraumatic Eyes: Pupils are equal round and reactive to light Mouth: Moist mucous membranes. Neck: Supple no thyromegaly. No bruit. No JVD Heart: Regular rate and rhythm, S1-S2 normal. No rubs murmurs or gallop Lungs: Clear to auscultation bilaterally. no rales or rhonchi Abdomen: Soft, nontender. Bowel sound are present. Extremities: No edema, no cyanosis, no clubbing. Neuro: Alert oriented Oriented x3. No focal sensory or motor deficit. Skin: Left thigh and hip with dry wound dressing Musculoskeletal system: No joint pain or swelling Hematological: No petechia or subcutanous hemorrhages. Immunological: No multiple septic spots on the skin Lymphatic: No generalized lymphadenopathy Psychiatry: Euthymic. Calm. - Constitutional Vitals: Temp Pulse Resp BP Pulse Ox 97.1 F L 67 14 109/67 100 12/25/18 16:15 12/25/18 16:39 12/25/18 16:15 12/25/18 16:15 12/25/18 16:39 General appearance: Present: no acute distress, well-nourished Results - Labs CBC & Chem 7: 12/24/18 04:09 12/24/18 04:09 Labs: Laboratory Last Values WBC 5.1 K/mm3 (4.5-11.0) 12/24/18 04:09 RBC 3.45 M/mm3 (3.65-5.03) L 12/24/18 04:09 Hgb 11.1 gm/dl (10.1-14.3) 12/24/18 04:09 Hct 32.9 % (30.3-42.9) 12/24/18 04:09 MCV 95 fl (79-97) 12/24/18 04:09 MCH 32 pg (28-32) 12/24/18 04:09 MCHC 34 % (30-34) 12/24/18 04:09 RDW 13.7 % (13.2-15.2) 12/24/18 04:09 Plt Count 362 K/mm3 (140-440) 12/24/18 04:09 Lymph % (Auto) 30.9 % (13.4-35.0) 12/24/18 04:09 Door % (Auto) 10.0 % (0.0-7.3) H 12/24/18 04:09 Eos % (Auto) 2.9 % (0.0-4.3) 12/24/18 04:09 Baso % (Auto) 0.6 % (0.0-1.8) 12/24/18 04:09 Lymph # 1.6 K/mm3 (1.2-5.4) 12/24/18 04:09 Door # 0.5 K/mm3 (0.0-0.8) 12/24/18 04:09 Eos # 0.1 K/mm3 (0.0-0.4) 12/24/18 04:09 Baso # 0.0 K/mm3 (0.0-0.1) 12/24/18 04:09 Seg Neutrophils % 55.6 % (40.0-70.0) 12/24/18 04:09 Seg Neutrophils # 2.8 K/mm3 (1.8-7.7) 12/24/18 04:09 Sodium 141 mmol/L (137-145) 12/24/18 04:09 Potassium 3.9 mmol/L (3.6-5.0) 12/24/18 04:09 Chloride 110.2 mmol/L (98-107) H 12/24/18 04:09 Carbon Dioxide 22 mmol/L (22-30) 12/24/18 04:09 13 mmol/L 12/24/18 04:09 BUN 7 mg/dL (7-17) 12/24/18 04:09 0.7 mg/dL (0.7-1.2) 12/24/18 04:09 Estimated GFR > 60 ml/min 12/24/18 04:09 10 % 12/24/18 04:09 Glucose 108 mg/dL (65-100) H 12/24/18 04:09 POC Glucose 85 (70-105) 12/25/18 16:19 6.6 % (4-6) H 12/23/18 12:04 Lactic Acid 1.20 mmol/L (0.7-2.0) 12/23/18 15:16 Calcium 7.8 mg/dL (8.4-10.2) L 12/24/18 04:09 0.20 mg/dL (0.1-1.2) 12/24/18 04:09 AST 12 units/L (5-40) 12/24/18 04:09 ALT 13 units/L (7-56) 12/24/18 04:09 42 units/L (35-129) 12/24/18 04:09 6.1 g/dL (6.3-8.2) L D 12/24/18 04:09 2.7 g/dL (3.9-5) L 12/24/18 04:09 0.8 % 12/24/18 04:09 Colorless (Yellow) 12/23/18 15:02 Clear (Clear) 12/23/18 15:02 6.0 (5.0-7.0) 12/23/18 15:02 Ur Specific [place] 1.004 (1.003-1.030) 12/23/18 15:02 <15 mg/dl mg/dL (Negative) 12/23/18 15:02 Neg mg/dL (Negative) 12/23/18 15:02 Neg mg/dL (Negative) 12/23/18 15:02 Neg (Negative) 12/23/18 15:02 Neg (Negative) 12/23/18 15:02 Neg (Negative) 12/23/18 15:02 < 2.0 mg/dL (<2.0) 12/23/18 15:02 Ur Leukocyte Esterase Neg (Negative) 12/23/18 15:02 0.0 /HPF (0.0-6.0) 12/23/18 15:02 1.0 /HPF (0.0-6.0) 12/23/18 15:02 U Epithel Cells (Auto) < 1.0 /HPF (0-13.0) 12/23/18 15:02 Active Medications - Current Medications Current Medications: Generic Name Dose Route Start Last Admin Trade Name Sergeyq PRN Reason Stop Dose Admin Acetaminophen 650 mg 12/23/18 19:38 Tylenol PO Q4H PRN Pain MILD(1-3)/Fever >100.5/NEAL Acetaminophen/Hydrocodone Bitart 1 each 12/25/18 15:49 [place] 5/325 PO Q4H PRN Pain, Moderate (4-6) Famotidine 20 mg 12/23/18 22:00 12/25/18 12:02 Pepcid PO Not Given BID [facility] Fentanyl 50 mcg 12/25/18 13:33 [place]ublimaze IV 12/25/18 23:59 Q5MIN PRN Pain , Severe (7-10) Sodium Chloride 1,000 mls @ 75 mls/hr 12/23/18 20:00 12/25/18 17:11 Nacl 0.9% 1000 Ml IV 75 mls/hr DIRECT RAY Administration Ampicillin Sodium/Sulbactam Sodium 3 gm in 100 mls @ 100 mls/hr 12/23/18 20:00 12/25/18 13:45 Unasyn/Ns 3 Gm/100 Ml IV 100 mls/hr Q6H [facility] Administration Protocol Vancomycin HCl 750 mg/ Sodium 265 mls @ 166.667 mls/hr 12/24/18 14:00 12/25/18 17:11 Chloride IV 166.667 mls/hr Q24HR@1400 RAY Administration Ibuprofen 600 mg 12/23/18 19:38 Ibuprofen PO Q6H PRN Pain, Mild (1-3) Insulin Human Lispro 0 unit 12/24/18 07:30 12/25/18 16:59 Humalog SUB-Q Not Given ACHS [facility] Protocol Metformin HCl 500 mg 12/24/18 08:00 12/25/18 17:12 Glucophage PO 500 mg BIDDIAB [facility] Administration Morphine Sulfate 2 mg 12/23/18 19:38 12/24/18 18:36 Morphine IV 2 mg Q4H PRN Administration Pain , Severe (7-10) Multivitamins/Minerals 1 each 12/24/18 10:00 12/25/18 12:02 Caltrate Plus PO Not Given BID [facility] Ondansetron HCl 4 mg 12/23/18 19:38 Zofran IV Q8H PRN Nausea And Vomiting Ondansetron HCl 4 mg 12/25/18 13:33 Zofran IV ONCE PRN Nausea And Vomiting Sodium Chloride 10 ml 12/23/18 22:00 12/25/18 12:02 Sodium Chloride Flush Syringe 10 Ml IV Not Given BID RAY Sodium Chloride 10 ml 12/23/18 19:38 Sodium Chloride Flush Syringe 10 Ml IV PRN PRN LINE FLUSH Nutrition/Malnutrition Assess - Dietary Evaluation Nutrition/Malnutrition Findings: Nutrition Notes Start: 12/25/18 16:17 Freq: Status: Active Protocol: Document 12/25/18 16:18 JERARDO (Rec: 12/25/18 16:24 JERARDO [email or web address]) Nutrition Notes Need for Assessment generated from: MD Order Initial or Follow up Assessment Current Diagnosis Diabetes,Hypertension, Hyperlipidemia Other Pertinent Diagnosis Infected necrotic wounds of (L ) abd, (L) gluteal, (L) thigh regions, SIRS Current Diet Cardiac/Consistent CHO Labs/Tests A1C 6.6 Pertinent Medications MVI with minerals Height 4 ft 9 in Weight 45.359 kg Usual Body Weight 46.36 kg [place] Body Weight (kg) 38.63 BMI 21.6 Intake Prior to Admission Good Subjective/Other Information RD consulted for malnutrition. Used language line services to interview pt. She reports good appetite and says that her children have been bringing her food. She is amenable to ONS. She is scheduled for further wound debridement today. Burn Absent Trauma Absent #1 Nutrition Diagnosis Increased nutrient needs ( specify in comment below) Etiology increased demands of wound healing As Evidenced by Signs and Symptoms pt with infected LLE wounds Is patient on ventilator? No Is Patient Ambulatory and/or Out of Bed No REE-([facility]-confined to bed) 1046.748 Kcal/Kg value to use for calculation 30 Approximate Energy Requirements Using 1361 kcal/Kg Calculation Used for Recommendations Kcal/kg Additional Notes Pro needs 1.25-1.5g/k-68g /day Fluid needs 1ml/kcal Nutrition Intervention Change Diet Order: Continue current diet order Add Supplement/Snack (indicate name/kcal Glucerna BID (vanilla) /protein ) Provides kCal: 440 Provides Protein (gm) 20 Goal #1 PO intake of meals plus ONS to meet 90-100% energy and pro needs Goal #2 Wound healing Anticipated Discharge Needs: Continue CHO-controlled oral nutrition supplement 1-2 times daily Follow-Up By: 12/28/18 Additional Comments F/U: intakes
[2018-12-25] MEDS: NORCO 5/325 PO PRN (21:30)
[2018-12-26] MEDS: UNASYN/NS 3 GM/100 ML 3 GM/100 ML BAG IV SCH ×4 (03:01→21:47)
[2018-12-26] MEDS: NORCO 5/325 PO PRN ×2 (06:15→21:56)
[2018-12-26] MEDS: GLUCOPHAGE PO SCH ×2 (07:30→17:44)
[2018-12-26] MEDS: CALTRATE PLUS PO SCH ×2 (10:22→21:47)
[2018-12-26] MEDS: PEPCID PO SCH ×2 (10:22→21:47)
[2018-12-26] MEDS: SODIUM CHLORIDE FLUSH SYRINGE 10 ML IV SCH (10:23)
[2018-12-26] MEDS: NACL 0.9% 1000 ML 1,000 ML IV SCH (10:33)
[2018-12-26] MEDS: VANCOMYCIN 750 MG in NACL 0.9% 250ML 250 ML IV SCH (13:52)
[2018-12-26] MEDS: MORPHINE IV PRN (14:44)
--- NOTE | 2018-12-26 14:58 | Progress Note ---
Assessment and Plan Assessment and plan: (1) SIRS (systemic inflammatory response syndrome) Current Visit: Yes Status: Acute Plan to address problem: Sec to abscess Blood culture and wound culture obtained. IV antibiotics (2) Abscess of left buttock Current Visit: Yes Status: Acute Plan to address problem: IV Unasyn and IV Vancomycin Discussed with Surgery, patient is for I and D (3) Abscess of left thigh Current Visit: Yes Status: Acute Plan to address problem: IV abx and Surgery consult- AND Patient underwent incision and drain s/p debridement necrotic tissue and purulent fluid L thigh wound - 1 cm x 1.5cm x 2 cm L buttock wound: 7 cm x 6 cm x 4 cm l lower abdominal wound - 3 cm x 1 cm x 1 cm Procedure: (4) HTN (hypertension) Current Visit: Yes Status: Chronic Qualifiers: Hypertension type: essential hypertension Qualified Code(s): I10 - Essential (primary) hypertension Plan to address problem: Cont antihpertensives (5) HLD (hyperlipidemia) Current Visit: Yes Status: Chronic Qualifiers: Hyperlipidemia type: mixed hyperlipidemia Qualified Code(s): E78.2 - Mixed hyperlipidemia Plan to address problem: COnt statins (6) Osteoporosis Current Visit: Yes Status: Chronic Qualifiers: Osteoporosis type: unspecified Plan to address problem: Cont Alendronate as per schedule (7) Hyponatremia Current Visit: Yes Status: Acute Plan to address problem: Mild Should correct with IV NS (8) Hypocalcemia Current Visit: Yes Status: Chronic Plan to address problem: Caltrate bid initiated (9) T2DM (type 2 diabetes mellitus) Current Visit: Yes Status: Acute Qualifiers: Diabetes mellitus long-term insulin use: unspecified long-term insulin use status Plan to address problem: Borderline Metfotmin initiated Primary team to discuss borderline DM A1c result 6.6 Discontinue SLIDNG SCALE (10) DVT prophylaxis Current Visit: Yes Status: Acute Plan to address problem: On Lovenox and GI prophylaxis Anticipate discharge in am History Interval history: Patient seen and examined today, resting comfortable, no new complaints. He is status post I/D Hospitalist Physical - Physical exam Narrative exam: Constitutional: Well-nourished well-developed. In no distress Head: Normocephalic atraumatic Eyes: Pupils are equal round and reactive to light Mouth: Moist mucous membranes. Neck: Supple no thyromegaly. No bruit. No JVD Heart: Regular rate and rhythm, S1-S2 normal. No rubs murmurs or gallop Lungs: Clear to auscultation bilaterally. no rales or rhonchi Abdomen: Soft, nontender. Bowel sound are present. Extremities: No edema, no cyanosis, no clubbing. Neuro: Alert oriented Oriented x3. No focal sensory or motor deficit. Skin: Left thigh and hip with dry wound dressing NO DRAINAGE Musculoskeletal system: No joint pain or swelling Hematological: No petechia or subcutanous hemorrhages. Immunological: No multiple septic spots on the skin Lymphatic: No generalized lymphadenopathy Psychiatry: Euthymic. Calm. - Constitutional Vitals: Temp Pulse Resp BP Pulse Ox 98.1 F 58 L 20 111/57 97 12/26/18 13:00 12/26/18 13:00 12/26/18 14:44 12/26/18 13:00 12/26/18 13:00 General appearance: Present: no acute distress, well-nourished Results - Labs CBC & Chem 7: 12/24/18 04:09 12/24/18 04:09 Labs: Laboratory Last Values WBC 5.1 K/mm3 (4.5-11.0) 12/24/18 04:09 RBC 3.45 M/mm3 (3.65-5.03) L 12/24/18 04:09 Hgb 11.1 gm/dl (10.1-14.3) 12/24/18 04:09 Hct 32.9 % (30.3-42.9) 12/24/18 04:09 MCV 95 fl (79-97) 12/24/18 04:09 MCH 32 pg (28-32) 12/24/18 04:09 MCHC 34 % (30-34) 12/24/18 04:09 RDW 13.7 % (13.2-15.2) 12/24/18 04:09 Plt Count 362 K/mm3 (140-440) 12/24/18 04:09 Lymph % (Auto) 30.9 % (13.4-35.0) 12/24/18 04:09 [place] % (Auto) 10.0 % (0.0-7.3) H 12/24/18 04:09 Eos % (Auto) 2.9 % (0.0-4.3) 12/24/18 04:09 Baso % (Auto) 0.6 % (0.0-1.8) 12/24/18 04:09 Lymph # 1.6 K/mm3 (1.2-5.4) 12/24/18 04:09 [place] # 0.5 K/mm3 (0.0-0.8) 12/24/18 04:09 Eos # 0.1 K/mm3 (0.0-0.4) 12/24/18 04:09 Baso # 0.0 K/mm3 (0.0-0.1) 12/24/18 04:09 Seg Neutrophils % 55.6 % (40.0-70.0) 12/24/18 04:09 Seg Neutrophils # 2.8 K/mm3 (1.8-7.7) 12/24/18 04:09 Sodium 141 mmol/L (137-145) 12/24/18 04:09 Potassium 3.9 mmol/L (3.6-5.0) 12/24/18 04:09 Chloride 110.2 mmol/L (98-107) H 12/24/18 04:09 Carbon Dioxide 22 mmol/L (22-30) 12/24/18 04:09 13 mmol/L 12/24/18 04:09 BUN 7 mg/dL (7-17) 12/24/18 04:09 0.7 mg/dL (0.7-1.2) 12/24/18 04:09 Estimated GFR > 60 ml/min 12/24/18 04:09 10 % 12/24/18 04:09 Glucose 108 mg/dL (65-100) H 12/24/18 04:09 POC Glucose 85 (70-105) 12/26/18 11:23 6.6 % (4-6) H 12/23/18 12:04 Lactic Acid 1.20 mmol/L (0.7-2.0) 12/23/18 15:16 Calcium 7.8 mg/dL (8.4-10.2) L 12/24/18 04:09 0.20 mg/dL (0.1-1.2) 12/24/18 04:09 AST 12 units/L (5-40) 12/24/18 04:09 ALT 13 units/L (7-56) 12/24/18 04:09 42 units/L (35-129) 12/24/18 04:09 6.1 g/dL (6.3-8.2) L D 12/24/18 04:09 2.7 g/dL (3.9-5) L 12/24/18 04:09 0.8 % 12/24/18 04:09 Colorless (Yellow) 12/23/18 15:02 Clear (Clear) 12/23/18 15:02 6.0 (5.0-7.0) 12/23/18 15:02 Ur Specific [place] 1.004 (1.003-1.030) 12/23/18 15:02 <15 mg/dl mg/dL (Negative) 12/23/18 15:02 Neg mg/dL (Negative) 12/23/18 15:02 Neg mg/dL (Negative) 12/23/18 15:02 Neg (Negative) 12/23/18 15:02 Neg (Negative) 12/23/18 15:02 Neg (Negative) 12/23/18 15:02 < 2.0 mg/dL (<2.0) 12/23/18 15:02 Ur Leukocyte Esterase Neg (Negative) 12/23/18 15:02 0.0 /HPF (0.0-6.0) 12/23/18 15:02 1.0 /HPF (0.0-6.0) 12/23/18 15:02 U Epithel Cells (Auto) < 1.0 /HPF (0-13.0) 12/23/18 15:02 Active Medications - Current Medications Current Medications: Generic Name Dose Route Start Last Admin Trade Name Freq PRN Reason Stop Dose Admin Acetaminophen 650 mg 12/23/18 19:38 Tylenol PO Q4H PRN Pain MILD(1-3)/Fever >100.5/NEAL Acetaminophen/Hydrocodone Bitart 1 each 12/25/18 15:49 12/26/18 06:15 [place] 5/325 PO 1 each Q4H PRN Administration Pain, Moderate (4-6) Famotidine 20 mg 12/23/18 22:00 12/26/18 10:22 Pepcid PO 20 mg BID RAY Administration Sodium Chloride 1,000 mls @ 75 mls/hr 12/23/18 20:00 12/26/18 10:33 Nacl 0.9% 1000 Ml IV 75 mls/hr DIRECT RAY Administration Ampicillin Sodium/Sulbactam Sodium 3 gm in 100 mls @ 100 mls/hr 12/23/18 20:00 12/26/18 13:52 Unasyn/Ns 3 Gm/100 Ml IV 100 mls/hr Q6H RAY Administration Protocol Vancomycin HCl 750 mg/ Sodium 265 mls @ 166.667 mls/hr 12/24/18 14:00 12/26/18 13:52 Chloride IV 166.667 mls/hr Q24HR@1400 RAY Administration Ibuprofen 600 mg 12/23/18 19:38 Ibuprofen PO Q6H PRN Pain, Mild (1-3) Metformin HCl 500 mg 12/24/18 08:00 12/26/18 07:30 Glucophage PO Not Given BIDDIAB RAY Morphine Sulfate 2 mg 12/23/18 19:38 12/26/18 14:44 Morphine IV 2 mg Q4H PRN Administration Pain , Severe (7-10) Multivitamins/Minerals 1 each 12/24/18 10:00 12/26/18 10:22 Caltrate Plus PO 1 each BID RAY Administration Ondansetron HCl 4 mg 12/23/18 19:38 Zofran IV Q8H PRN Nausea And Vomiting Sodium Chloride 10 ml 12/23/18 22:00 12/26/18 10:23 Sodium Chloride Flush Syringe 10 Ml IV 10 ml BID RAY Administration Sodium Chloride 10 ml 12/23/18 19:38 Sodium Chloride Flush Syringe 10 Ml IV PRN PRN LINE FLUSH Nutrition/Malnutrition Assess - Dietary Evaluation Nutrition/Malnutrition Findings: Nutrition Notes Start: 12/25/18 16:17 Freq: Status: Active Protocol: Document 12/25/18 16:18 JERARDO (Rec: 12/25/18 16:24 JERARDO SRW- [email or web address]) Nutrition Notes Need for Assessment generated from: MD Order Initial or Follow up Assessment Current Diagnosis Diabetes,Hypertension, Hyperlipidemia Other Pertinent Diagnosis Infected necrotic wounds of (L ) abd, (L) gluteal, (L) thigh regions, SIRS Current Diet Cardiac/Consistent CHO Labs/Tests A1C 6.6 Pertinent Medications MVI with minerals Height 4 ft 9 in Weight 45.359 kg Usual Body Weight 46.36 kg [place] Body Weight (kg) 38.63 BMI 21.6 Intake Prior to Admission Good Subjective/Other Information RD consulted for malnutrition. Used language line services to interview pt. She reports good appetite and says that her children have been bringing her food. She is amenable to ONS. She is scheduled for further wound debridement today. Burn Absent Trauma Absent #1 Nutrition Diagnosis Increased nutrient needs ( specify in comment below) Etiology increased demands of wound healing As Evidenced by Signs and Symptoms pt with infected LLE wounds Is patient on ventilator? No Is Patient Ambulatory and/or Out of Bed No REE-([facility]-confined to bed) 1046.748 Kcal/Kg value to use for calculation 30 Approximate Energy Requirements Using 1361 kcal/Kg Calculation Used for Recommendations Kcal/kg Additional Notes Pro needs 1.25-1.5g/k-68g /day Fluid needs 1ml/kcal Nutrition Intervention Change Diet Order: Continue current diet order Add Supplement/Snack (indicate name/kcal Glucerna BID (vanilla) /protein ) Provides kCal: 440 Provides Protein (gm) 20 Goal #1 PO intake of meals plus ONS to meet 90-100% energy and pro needs Goal #2 Wound healing Anticipated Discharge Needs: Continue CHO-controlled oral nutrition supplement 1-2 times daily Follow-Up By: 12/28/18 Additional Comments F/U: intakes - Attestation Statement I have reviewed and agreed w/ Malnutrition eval & tx plan: Yes
--- NOTE | 2018-12-26 15:25 | Progress Note ---
Assessment and Plan 68 yo F s/p debridement of left post thigh, buttock, and lower abdominal wounds, POD 1 1. wound vac to buttock wound being applied by conduit installer 2. alginate packing to other wounds 3x per wk 3. offloading 4. optimize nutrition 5. abx 6. follow up cultures Thank you, please call with questions. Subjective Date of service: 12/26/18 Narrative: Pt seen and examined. No complaints or overnight events Objective Vital Signs - 12hr 12/26/18 12/26/18 12/26/18 05:20 05:21 06:15 Temperature 97.9 F Pulse Rate 53 L 52 L Respiratory 17 18 Rate Blood Pressure 101/52 Blood Pressure [Right] O2 Sat by Pulse 100 100 Oximetry 12/26/18 12/26/18 12/26/18 07:21 13:00 14:44 Temperature 97.7 F 98.1 F Pulse Rate 56 L 58 L Respiratory 16 16 20 Rate Blood Pressure 111/61 Blood Pressure 111/57 [Right] O2 Sat by Pulse 99 97 Oximetry - General physical appearance Narrative Exam: Gen: AAOx3. NAD CV: s1, S2+ resp; even and unlabored Abd; soft. Left Lower abdominal wound clean with red base Ext: no c/c/e. L posterior thigh wound clean with red base/ Buttock wound clean with red base and no drainage - Labs 12/24/18 04:09 12/24/18 04:09
[2018-12-27] MEDS: HumaLOG SUB-Q SCH (02:15)
[2018-12-27] MEDS: SODIUM CHLORIDE FLUSH SYRINGE 10 ML IV SCH ×2 (02:56→10:52)
[2018-12-27] MEDS: UNASYN/NS 3 GM/100 ML 3 GM/100 ML BAG IV SCH ×4 (02:56→21:49)
[2018-12-27] MEDS: NACL 0.9% 1000 ML 1,000 ML IV SCH (03:02)
[2018-12-27] MEDS ORDERED: FOSAMAX PO SCH (06:00)
--- NOTE | 2018-12-27 08:50 | Discharge Summary ---
Providers - Providers Date of Admission: 12/23/18 14:04 Attending physician: NATHALY BISHOP MD 12/23/18 19:38 Consult to Physician [CONS] Routine Comment: Consulting Provider: JOSE GUADALUPE STEVENSON Physician Instructions: Reason For Exam: Multiple Absccesses L Thigh and L Hip 12/24/18 06:00 Consult to Wound/ET Nurse [CONS] Urgent Reason For Exam: wound eval 12/24/18 14:33 Consult to Dietitian/Nutrition [CONS] Routine Physician Instructions: Reason For Exam: Reason for Consult: Malnutrition Primary care physician: BAKARI ALVAREZ Hospitalization Reason for admission: abscess Condition: Stable Hospital course: 68-year-old Chinese female who is presenting with a recheck of abscess that was I&D on her left hip and thigh 2 days ago. Patient's daughter states that she feels she's getting worse. Patient has had fever and diaphoresis chills. She has had some increased weakness as well and her pain is not controlled. Patient had an abscess drained 2 days ago. She denies any nausea vomiting diarrhea at this time. Patient has 3 abscesses on L posterior Thigh and L Hip .@ abscesses with drains .Erythema surrounding the drains present. Discharged on Bactrim per surgery recommendation Patient understands importance to follow with surgery (1) SIRS (systemic inflammatory response syndrome) Current Visit: Yes Status: Acute Plan to address problem: Sec to abscess Blood culture and wound culture obtained. IV antibiotics (2) Abscess of left buttock Current Visit: Yes Status: Acute Plan to address problem: IV Unasyn and IV Vancomycin Discussed with Surgery, patient had bedside I/D (3) Abscess of left thigh Current Visit: Yes Status: Acute Plan to address problem: IV abx and Surgery consult- AND Patient underwent incision and drain s/p debridement necrotic tissue and purulent fluid L thigh wound - 1 cm x 1.5cm x 2 cm L buttock wound: 7 cm x 6 cm x 4 cm l lower abdominal wound - 3 cm x 1 cm x 1 cm (4) HTN (hypertension) Current Visit: Yes Status: Chronic Qualifiers: Hypertension type: essential hypertension Qualified Code(s): I10 - Essential (primary) hypertension Plan to address problem: Cont antihpertensives (5) HLD (hyperlipidemia) Current Visit: Yes Status: Chronic Qualifiers: Hyperlipidemia type: mixed hyperlipidemia Qualified Code(s): E78.2 - Mixed hyperlipidemia Plan to address problem: COnt statins (6) Osteoporosis Current Visit: Yes Status: Chronic Qualifiers: Osteoporosis type: unspecified Plan to address problem: Cont Alendronate as per schedule (7) Hyponatremia Current Visit: Yes Status: Acute Plan to address problem: Mild Should correct with IV NS (8) Hypocalcemia Current Visit: Yes Status: Chronic Plan to address problem: Caltrate bid initiated (9) T2DM (type 2 diabetes mellitus) Current Visit: Yes Status: Acute Qualifiers: Diabetes mellitus exterminator helper insulin use: unspecified exterminator helper insulin use status Plan to address problem: Borderline Metfotmin initiated Primary team to discuss borderline DM A1c result 6.6 Discontinue SLIDING SCALE Disposition: DC/TX-06 HOME UNDER HOME [facility] Time spent for discharge: 35 mins Core Measure Documentation - Palliative Care Palliative Care/ Comfort Measures: Not Applicable - Core Measures Any of the following diagnoses?: none Exam - Physical Exam Narrative exam: Constitutional: Well-nourished well-developed. In no distress Head: Normocephalic atraumatic Eyes: Pupils are equal round and reactive to light Mouth: Moist mucous membranes. Neck: Supple no thyromegaly. No bruit. No JVD Heart: Regular rate and rhythm, S1-S2 normal. No rubs murmurs or gallop Lungs: Clear to auscultation bilaterally. no rales or rhonchi Abdomen: Soft, nontender. Bowel sound are present. Extremities: No edema, no cyanosis, no clubbing. Neuro: Alert oriented Oriented x3. No focal sensory or motor deficit. Skin: Left thigh and hip with dry wound dressing NO DRAINAGE Musculoskeletal system: No joint pain or swelling Hematological: No petechia or subcutanous hemorrhages. Immunological: No multiple septic spots on the skin Lymphatic: No generalized lymphadenopathy Psychiatry: Euthymic. Calm. - Constitutional Vitals: Temp Pulse Resp BP Pulse Ox 98.0 F 56 L 17 110/55 91 12/27/18 03:49 12/27/18 03:49 12/27/18 03:49 12/27/18 03:49 12/27/18 03:49 Plan Activity: advance as tolerated, fall precautions Diet: diabetic Wound: per your surgeon's advice, per wound nurse instructions Special Instructions: record daily BP diary, record blood sugar diary Additional Instructions: PLEASE CHECK RENAL FUNCTION IN 3-5 DAYS Follow up with: BAKARI ALVAREZ MD [Primary Care Provider] - 7 Days CURT MONTES DE OCA DO [Staff Physician] - 7 Days Forms: Work/School Release Form(ED), Work/School Release Form Prescriptions: Sulfamethoxazole/Trimethoprim [Bactrim DS TAB] 1 each PO BID 14 Days tablet Calcium Carb/Vit D3/Minerals [Caltrate Plus] 1 each PO BID #60 tablet metFORMIN [Glucophage] 500 mg PO BIDDIAB #30 tablet HYDROcodone/APAP 5-325 [[place] 5-325 mg TAB] 1 each PO Q6H PRN #14 tablet PRN Reason: Pain, Moderate (4-6) Other Discharge Orders: Glucometer (Amb) Location: None Selected Glucometer supplies[Amb] Location: None Selected
[2018-12-27] MEDS: GLUCOPHAGE PO SCH ×2 (10:50→18:23)
[2018-12-27] MEDS: PEPCID PO SCH ×2 (10:50→21:51)
[2018-12-27] MEDS: MORPHINE IV PRN (10:51)
[2018-12-27] MEDS: CALTRATE PLUS PO SCH ×2 (10:51→21:51)
[2018-12-27] MEDS: VANCOMYCIN 750 MG in NACL 0.9% 250ML 250 ML IV SCH (14:06)
--- NOTE | 2018-12-27 16:19 | Progress Note ---
Assessment and Plan Assessment and plan: (1) SIRS (systemic inflammatory response syndrome) Current Visit: Yes Status: Acute Plan to address problem: Sec to abscess Blood culture and wound culture obtained. IV antibiotics (2) Abscess of left buttock Current Visit: Yes Status: Acute Plan to address problem: IV Unasyn and IV Vancomycin Discussed with Surgery, patient is for I and D (3) Abscess of left thigh Current Visit: Yes Status: Acute Plan to address problem: IV abx and Surgery consult- AND Patient underwent incision and drain s/p debridement necrotic tissue and purulent fluid Cultures grown gram positive coci-staph aurus L thigh wound - 1 cm x 1.5cm x 2 cm L buttock wound: 7 cm x 6 cm x 4 cm l lower abdominal wound - 3 cm x 1 cm x 1 cm Procedure: (4) HTN (hypertension) Current Visit: Yes Status: Chronic Qualifiers: Hypertension type: essential hypertension Qualified Code(s): I10 - Essential (primary) hypertension Plan to address problem: Cont antihpertensives (5) HLD (hyperlipidemia) Current Visit: Yes Status: Chronic Qualifiers: Hyperlipidemia type: mixed hyperlipidemia Qualified Code(s): E78.2 - Mixed hyperlipidemia Plan to address problem: COnt statins (6) Osteoporosis Current Visit: Yes Status: Chronic Qualifiers: Osteoporosis type: unspecified Plan to address problem: Cont Alendronate as per schedule (7) Hyponatremia Current Visit: Yes Status: Acute Plan to address problem: Mild Should correct with IV NS (8) Hypocalcemia Current Visit: Yes Status: Chronic Plan to address problem: Caltrate bid initiated (9) T2DM (type 2 diabetes mellitus) Current Visit: Yes Status: Acute Qualifiers: Diabetes mellitus fci insulin use: unspecified fci insulin use status Plan to address problem: Borderline Metfotmin initiated Primary team to discuss borderline DM A1c result 6.6 Discontinue SLIDING SCALE (10) DVT prophylaxis Current Visit: Yes Status: Acute Plan to address problem: On Lovenox and GI prophylaxis Anticipate discharge in am History Interval history: Patient seen and examined today, resting comfortable, no new complaints. no overt drainage from surgical site Hospitalist Physical - Physical exam Narrative exam: Constitutional: Well-nourished well-developed. In no distress Head: Normocephalic atraumatic Eyes: Pupils are equal round and reactive to light Mouth: Moist mucous membranes. Neck: Supple no thyromegaly. No bruit. No JVD Heart: Regular rate and rhythm, S1-S2 normal. No rubs murmurs or gallop Lungs: Clear to auscultation bilaterally. no rales or rhonchi Abdomen: Soft, nontender. Bowel sound are present. Extremities: No edema, no cyanosis, no clubbing. Neuro: Alert oriented Oriented x3. No focal sensory or motor deficit. Skin: Left thigh and hip with dry wound dressing NO DRAINAGE Musculoskeletal system: No joint pain or swelling Hematological: No petechia or subcutanous hemorrhages. Immunological: No multiple septic spots on the skin Lymphatic: No generalized lymphadenopathy Psychiatry: Euthymic. Calm. - Constitutional Vitals: Temp Pulse Resp BP Pulse Ox 98.0 F 56 L 18 110/55 91 12/27/18 03:49 12/27/18 03:49 12/27/18 10:51 12/27/18 03:49 12/27/18 03:49 General appearance: Present: no acute distress, well-nourished Results - Labs CBC & Chem 7: 12/24/18 04:09 12/24/18 04:09 Labs: Laboratory Last Values WBC 5.1 K/mm3 (4.5-11.0) 12/24/18 04:09 RBC 3.45 M/mm3 (3.65-5.03) L 12/24/18 04:09 Hgb 11.1 gm/dl (10.1-14.3) 12/24/18 04:09 Hct 32.9 % (30.3-42.9) 12/24/18 04:09 MCV 95 fl (79-97) 12/24/18 04:09 MCH 32 pg (28-32) 12/24/18 04:09 MCHC 34 % (30-34) 12/24/18 04:09 RDW 13.7 % (13.2-15.2) 12/24/18 04:09 Plt Count 362 K/mm3 (140-440) 12/24/18 04:09 Lymph % (Auto) 30.9 % (13.4-35.0) 12/24/18 04:09 [place] % (Auto) 10.0 % (0.0-7.3) H 12/24/18 04:09 Eos % (Auto) 2.9 % (0.0-4.3) 12/24/18 04:09 Baso % (Auto) 0.6 % (0.0-1.8) 12/24/18 04:09 Lymph # 1.6 K/mm3 (1.2-5.4) 12/24/18 04:09 Wheeler # 0.5 K/mm3 (0.0-0.8) 12/24/18 04:09 Eos # 0.1 K/mm3 (0.0-0.4) 12/24/18 04:09 Baso # 0.0 K/mm3 (0.0-0.1) 12/24/18 04:09 Seg Neutrophils % 55.6 % (40.0-70.0) 12/24/18 04:09 Seg Neutrophils # 2.8 K/mm3 (1.8-7.7) 12/24/18 04:09 Sodium 141 mmol/L (137-145) 12/24/18 04:09 Potassium 3.9 mmol/L (3.6-5.0) 12/24/18 04:09 Chloride 110.2 mmol/L (98-107) H 12/24/18 04:09 Carbon Dioxide 22 mmol/L (22-30) 12/24/18 04:09 13 mmol/L 12/24/18 04:09 BUN 7 mg/dL (7-17) 12/24/18 04:09 0.7 mg/dL (0.7-1.2) 12/24/18 04:09 Estimated GFR > 60 ml/min 12/24/18 04:09 10 % 12/24/18 04:09 Glucose 108 mg/dL (65-100) H 12/24/18 04:09 POC Glucose 100 (70-105) 12/27/18 11:50 6.6 % (4-6) H 12/23/18 12:04 Lactic Acid 1.20 mmol/L (0.7-2.0) 12/23/18 15:16 Calcium 7.8 mg/dL (8.4-10.2) L 12/24/18 04:09 0.20 mg/dL (0.1-1.2) 12/24/18 04:09 AST 12 units/L (5-40) 12/24/18 04:09 ALT 13 units/L (7-56) 12/24/18 04:09 42 units/L (35-129) 12/24/18 04:09 6.1 g/dL (6.3-8.2) L D 12/24/18 04:09 2.7 g/dL (3.9-5) L 12/24/18 04:09 0.8 % 12/24/18 04:09 Colorless (Yellow) 12/23/18 15:02 Clear (Clear) 12/23/18 15:02 6.0 (5.0-7.0) 12/23/18 15:02 Ur Specific [place] 1.004 (1.003-1.030) 12/23/18 15:02 <15 mg/dl mg/dL (Negative) 12/23/18 15:02 Neg mg/dL (Negative) 12/23/18 15:02 Neg mg/dL (Negative) 12/23/18 15:02 Neg (Negative) 12/23/18 15:02 Neg (Negative) 12/23/18 15:02 Neg (Negative) 12/23/18 15:02 < 2.0 mg/dL (<2.0) 12/23/18 15:02 Ur Leukocyte Esterase Neg (Negative) 12/23/18 15:02 0.0 /HPF (0.0-6.0) 12/23/18 15:02 1.0 /HPF (0.0-6.0) 12/23/18 15:02 U Epithel Cells (Auto) < 1.0 /HPF (0-13.0) 12/23/18 15:02 Active Medications - Current Medications Current Medications: Generic Name Dose Route Start Last Admin Trade Name Freq PRN Reason Stop Dose Admin Acetaminophen 650 mg 12/23/18 19:38 Tylenol PO Q4H PRN Pain MILD(1-3)/Fever >100.5/NEAL Acetaminophen/Hydrocodone Bitart 1 each 12/25/18 15:49 12/26/18 21:56 [place] 5/325 PO 1 each Q4H PRN Administration Pain, Moderate (4-6) Alendronate Sodium 70 mg 12/27/18 06:00 12/27/18 05:42 Fosamax PO 70 mg Th RAY Administration Famotidine 20 mg 12/23/18 22:00 12/27/18 10:50 Pepcid PO 20 mg BID RAY Administration Sodium Chloride 1,000 mls @ 75 mls/hr 12/23/18 20:00 12/27/18 03:02 Nacl 0.9% 1000 Ml IV 75 mls/hr DIRECT RAY Administration Ampicillin Sodium/Sulbactam Sodium 3 gm in 100 mls @ 100 mls/hr 12/23/18 20:00 12/27/18 14:05 Unasyn/Ns 3 Gm/100 Ml IV 100 mls/hr Q6H RAY Administration Protocol Vancomycin HCl 750 mg/ Sodium 265 mls @ 166.667 mls/hr 12/24/18 14:00 12/27/18 14:06 Chloride IV 166.667 mls/hr Q24HR@1400 RAY Administration Ibuprofen 600 mg 12/23/18 19:38 Ibuprofen PO Q6H PRN Pain, Mild (1-3) Metformin HCl 500 mg 12/24/18 08:00 12/27/18 10:50 Glucophage PO 500 mg BIDDIAB RAY Administration Morphine Sulfate 2 mg 12/23/18 19:38 12/27/18 10:51 Morphine IV 2 mg Q4H PRN Administration Pain , Severe (7-10) Multivitamins/Minerals 1 each 12/24/18 10:00 12/27/18 10:51 Caltrate Plus PO 1 each BID RAY Administration Ondansetron HCl 4 mg 12/23/18 19:38 Zofran IV Q8H PRN Nausea And Vomiting Sodium Chloride 10 ml 12/23/18 22:00 12/27/18 10:52 Sodium Chloride Flush Syringe 10 Ml IV 10 ml BID RAY Administration Sodium Chloride 10 ml 12/23/18 19:38 Sodium Chloride Flush Syringe 10 Ml IV PRN PRN LINE FLUSH Nutrition/Malnutrition Assess - Dietary Evaluation Nutrition/Malnutrition Findings: Nutrition Notes Start: 12/25/18 16:17 Freq: Status: Active Protocol: Document 12/25/18 16:18 JERARDO (Rec: 12/25/18 16:24 JERARDO [id number] [email or web address]) Nutrition Notes Need for Assessment generated from: MD Order Initial or Follow up Assessment Current Diagnosis Diabetes,Hypertension, Hyperlipidemia Other Pertinent Diagnosis Infected necrotic wounds of (L ) abd, (L) gluteal, (L) thigh regions, SIRS Current Diet Cardiac/Consistent CHO Labs/Tests A1C 6.6 Pertinent Medications MVI with minerals Height 4 ft 9 in Weight 45.359 kg Usual Body Weight 46.36 kg [place] Body Weight (kg) 38.63 BMI 21.6 Intake Prior to Admission Good Subjective/Other Information RD consulted for malnutrition. Used language line services to interview pt. She reports good appetite and says that her children have been bringing her food. She is amenable to ONS. She is scheduled for further wound debridement today. Burn Absent Trauma Absent #1 Nutrition Diagnosis Increased nutrient needs ( specify in comment below) Etiology increased demands of wound healing As Evidenced by Signs and Symptoms pt with infected LLE wounds Is patient on ventilator? No Is Patient Ambulatory and/or Out of Bed No REE-([facility]-confined to bed) 1046.748 Kcal/Kg value to use for calculation 30 Approximate Energy Requirements Using 1361 kcal/Kg Calculation Used for Recommendations Kcal/kg Additional Notes Pro needs 1.25-1.5g/k-68g /day Fluid needs 1ml/kcal Nutrition Intervention Change Diet Order: Continue current diet order Add Supplement/Snack (indicate name/kcal Glucerna BID (vanilla) /protein ) Provides kCal: 440 Provides Protein (gm) 20 Goal #1 PO intake of meals plus ONS to meet 90-100% energy and pro needs Goal #2 Wound healing Anticipated Discharge Needs: Continue CHO-controlled oral nutrition supplement 1-2 times daily Follow-Up By: 12/28/18 Additional Comments F/U: intakes
[2018-12-27] MEDS: NORCO 5/325 PO PRN (21:51)
[2018-12-28] MEDS: SODIUM CHLORIDE FLUSH SYRINGE 10 ML IV SCH (02:08)
[2018-12-28] MEDS: NACL 0.9% 1000 ML 1,000 ML IV SCH (02:09)
[2018-12-28] MEDS: UNASYN/NS 3 GM/100 ML 3 GM/100 ML BAG IV SCH ×3 (02:14→14:18)
[2018-12-28] MEDS: PEPCID PO SCH (09:54)
[2018-12-28] MEDS: GLUCOPHAGE PO SCH ×2 (09:54→17:18)
[2018-12-28] MEDS: CALTRATE PLUS PO SCH (09:55)
[2018-12-28] MEDS: VANCOMYCIN 750 MG in NACL 0.9% 250ML 250 ML IV SCH (15:51)
[2018-12-28] MEDS ORDERED: VANCOMYCIN/NS 1 GM/250 ML 1 GM/250 ML BAG IV SCH (16:00)
[2018-12-28 18:13] VITALS: BP 112/56
[2018-12-29] MEDS ORDERED: VANCOMYCIN/NS 1 GM/250 ML 1 GM/250 ML BAG IV SCH (02:00)
--- NOTE | 2018-12-29 16:48 | Operative Report ---
PREOPERATIVE DIAGNOSIS: Infected necrotic wounds of left buttock, lower abdomen and posterior thigh. POSTOPERATIVE DIAGNOSIS: Infected necrotic wounds of left buttock, lower abdomen and posterior thigh. FINDINGS: Necrotic tissue and purulent fluid. Left thigh wound measured 1 cm x 1.5 cm x 2 cm, left buttock wound 7 cm x 6 cm x 4 cm, left lower abdominal wound 3 cm x 1 cm x 1 cm. PROCEDURE: Excisional debridement of infected wound of left buttock, left posterior thigh and left lower abdominal wall. ANESTHESIA: MAC and local. SURGEON: Kortney Webb DO ESTIMATED BLOOD LOSS: Minimal. PATHOLOGY: Wound cultures, left buttock. SPECIMEN DISPOSITION: To lab. CONDITION AND DISPOSITION: The patient is stable to PACU. HISTORY OF PROCEDURE AND INDICATIONS: The patient is a 68-year-old female who presented to the Emergency Room with complaints of pain at the left lower abdomen, left buttock and left posterior thigh. She was found to have abscesses which were I and D'd in the Emergency Room. She was asked to return to the Emergency Room in 48 hours for packing removal and did return and complained of more pain and felt the wounds worse. She was admitted for further care and IV antibiotics. Surgical consultation was obtained and upon seeing the patient, she did have necrotic tissue and more purulent drainage surrounding these wounds and therefore debridement was recommended. All risks, benefits and alternatives to surgery were discussed with the patient and consent obtained using the language line. PROCEDURE IN DETAIL: The patient was identified in preoperative area, taken back to the operating room and placed on the operating table in supine position. After anesthesia was induced, she was turned to the lateral decubitus position. All bony prominences padded appropriately. I first started with debridement of the left lower abdominal wound. Local anesthetic was infiltrated to all skin incision sites around the wounds prior to any debridement. An excisional debridement was performed using forceps and a blade. All necrotic skin and subcutaneous tissue was removed. I then turned my attention to the left thigh wound and then to the left buttock wound and debridement was performed in similar fashion. All wounds were also debrided with a curette. There was good bleeding from all wound edges and wound beds. The wound beds were now clean and contained red tissue. Hemostasis was carefully ensured using pressure and electrocautery. Once hemostasis was carefully ensured, the wounds were all packed with saline moistened gauze, covered with a dry gauze, ABD pads and Medipore tape. At the end of the case, all sponge, instrument, sharp counts were correct x 2. Please note that wound cultures were obtained from the left buttock wound. The patient was awoken from anesthesia and taken to PACU in stable condition. JOB# [id number]
== END 2018-12-28 21:25 | disposition home health service (06) | DRG 571 ==
LOC: ED 11:08 → 3B-SURG 14:04
PROVIDERS: ADMIT Internal Medicine; ATTEND Internal Medicine
PROC: 0JB80ZZ Excision of Abdomen Subcutaneous Tissue and Fascia, Open Approach (ICD-10-PCS; principal; 2018-12-25)
PROC: 0JB90ZZ Excision of Buttock Subcutaneous Tissue and Fascia, Open Approach (ICD-10-PCS; 2018-12-25)
PROC: 0JBM0ZZ Excision of Left Upper Leg Subcutaneous Tissue and Fascia, Open Approach (ICD-10-PCS; 2018-12-25)
DX: L02.31 Cutaneous abscess of buttock (principal); L02.416 Cutaneous abscess of left lower limb; E87.1 Hypo-osmolality and hyponatremia; E44.0 Moderate protein-calorie malnutrition; L02.211 Cutaneous abscess of abdominal wall; R65.10 Systemic inflammatory response syndrome (SIRS) of non-infectious origin without acute organ dysfunction; L03.317 Cellulitis of buttock; B95.62 Methicillin resistant Staphylococcus aureus infection as the cause of diseases classified elsewhere; E78.2 Mixed hyperlipidemia; E83.51 Hypocalcemia; E11.9 Type 2 diabetes mellitus without complications; M81.0 Age-related osteoporosis without current pathological fracture; Z68.21 Body mass index [BMI] 21.0-21.9, adult; Z82.49 Family history of ischemic heart disease and other diseases of the circulatory system; Z79.899 Other long term (current) drug therapy; Z79.84 Long term (current) use of oral hypoglycemic drugs
CPT/HCPCS: 36415; 80048; 80053; 80202; 81001; 82140; 82962; 83036; 85025; 85027; 87040; 87075; 87076; 87086; 87116; 87186; 96365; G0378; J0295; J0690; J1885; J2250; J2270; J2405; J2704; J3010; J3370; J7030; J7040; J7050

== ENCOUNTER 2019-01-04 12:11 | Outpatient (CLI) | payer MEDICARE ==
[2019-01-04] MEDS ORDERED: XYLOCAINE TOPICAL 4% TP ONE (13:15)
== END 2019-01-04 12:12 | disposition home or self-care (01) ==
LOC: WOUND 12:11
PROVIDERS: ATTEND Surgery
DX: T81.89XA Other complications of procedures, not elsewhere classified, initial encounter (principal); L02.416 Cutaneous abscess of left lower limb; E11.9 Type 2 diabetes mellitus without complications; Y83.8 Other surgical procedures as the cause of abnormal reaction of the patient, or of later complication, without mention of misadventure at the time of the procedure; Y92.89 Other specified places as the place of occurrence of the external cause
CPT/HCPCS: 11042; G0463; 99215

== ENCOUNTER 2019-01-14 07:46 | Outpatient (CLI) | payer MEDICARE | END 2019-01-14 07:47 | disposition home or self-care (01) | LOC: WOUND 07:46 | PROVIDERS: ATTEND Surgery | DX: T81.89XD Other complications of procedures, not elsewhere classified, subsequent encounter (principal); L02.416 Cutaneous abscess of left lower limb; E11.9 Type 2 diabetes mellitus without complications; Y83.8 Other surgical procedures as the cause of abnormal reaction of the patient, or of later complication, without mention of misadventure at the time of the procedure ==

== ENCOUNTER 2019-01-21 07:48 | Outpatient (CLI) | payer MEDICARE | END 2019-01-21 07:49 | disposition home or self-care (01) | LOC: WOUND 07:48 | PROVIDERS: ATTEND Surgery | DX: T81.89XD Other complications of procedures, not elsewhere classified, subsequent encounter (principal); L02.416 Cutaneous abscess of left lower limb; E11.9 Type 2 diabetes mellitus without complications; Y83.8 Other surgical procedures as the cause of abnormal reaction of the patient, or of later complication, without mention of misadventure at the time of the procedure ==

== ENCOUNTER 2019-01-28 07:57 | Outpatient (CLI) | payer MEDICARE | END 2019-01-28 07:58 | disposition home or self-care (01) | LOC: WOUND 07:57 | PROVIDERS: ATTEND Surgery | DX: T81.89XD Other complications of procedures, not elsewhere classified, subsequent encounter (principal); L02.416 Cutaneous abscess of left lower limb; E11.9 Type 2 diabetes mellitus without complications; Y83.8 Other surgical procedures as the cause of abnormal reaction of the patient, or of later complication, without mention of misadventure at the time of the procedure | CPT/HCPCS: 99213; G0463 ==

== ENCOUNTER 2019-02-04 08:03 | Outpatient (CLI) | payer MEDICARE ==
[2019-02-04] MEDS ORDERED: XYLOCAINE TOPICAL 4% TP ONE (09:00)
[2019-02-04] MEDS ORDERED: SILVER NITRATE TP ONE (09:00)
== END 2019-02-04 08:04 | disposition home or self-care (01) ==
LOC: WOUND 08:03
PROVIDERS: ATTEND Surgery
DX: T81.89XD Other complications of procedures, not elsewhere classified, subsequent encounter (principal); L02.416 Cutaneous abscess of left lower limb; E11.9 Type 2 diabetes mellitus without complications; Y83.8 Other surgical procedures as the cause of abnormal reaction of the patient, or of later complication, without mention of misadventure at the time of the procedure
CPT/HCPCS: 99213; G0463